=== PATIENT | female | born 1985 | race Caucasian/White ===

== ENCOUNTER → 2018-08-30 | Outpatient (CLI) | payer OTHER ==
--- NOTE | 2018-08-30 19:52 | RADIOLOGY REPORT (SQ) ---
EXAM DESCRIPTION: CT ABD/PELVIS WITH IV ORAL COMPLETED DATE/TIME: 08/30/2018 7:08 pm REASON FOR STUDY: R10.13 EPIGASTRIC PAIN R10.13 EPIGASTRIC PAIN COMPARISON: None. TECHNIQUE: CT scan of the abdomen and pelvis performed using helical scanning technique with dynamic intravenous contrast injection. Oral contrast. Images reviewed with lung, soft tissue, and bone win dows. Reconstructed coronal and sagittal MPR images reviewed. Delayed images for evaluation of the ur inary system also acquired. All images stored on PACS. All CT scanners at this facility use dose modulation, iterative reconstruction, and/or weight based d osing when appropriate to reduce radiation dose to as low as reasonably achievable (ALARA). [facility]: Dose Right [facility]: CareDose [facility]: Dose Right [facility]: Teradose 4D [facility]: amaysim CONTRAST TYPE AND DOSE: contrast/concentration: Isovue 350.00 mg/ml; Total Contrast Delivered: 98.0 ml; Total Saline Delivered: 72.0 ml RENAL FUNCTION: Creatinine 0.5 RADIATION DOSE: CT Rad equipment meets quality standard of care and radiation dose reduction techniq ues were employed. CTDIvol: 12.3 - 16.7 mGy. DLP: 1664 mGy-cm.. LIMITATIONS: None. FINDINGS: LOWER CHEST: No significant findings. No nodules or infiltrates. LIVER: Normal size. No masses. No dilated ducts. SPLEEN: Normal size. No focal lesions. PANCREAS: No masses. No significant calcifications. No adjacent inflammation or peripancreatic fluid collections. Pancreatic duct not dilated. GALLBLADDER: No identified stones by CT criteria. No inflammatory changes to suggest cholecystitis. ADRENAL GLANDS: No significant masses or asymmetry. RIGHT KIDNEY AND URETER: No solid masses. No significant calcifications. No hydronephrosis or hyd roureter. LEFT KIDNEY AND URETER: No solid masses. No significant calcifications. No hydronephrosis or hydr oureter. AORTA AND VESSELS: No aneurysm. No dissection. Renal arteries, SMA, celiac without stenosis. RETROPERITONEUM: No retroperitoneal adenopathy, hemorrhage or masses. BOWEL AND PERITONEAL CAVITY: No masses or inflammatory changes. No free fluid or peritoneal masses. APPENDIX: Not identified. PELVIS: No mass. No free fluid. Normal bladder. ABDOMINAL WALL: No masses. No hernias. BONES: No significant or acute findings. OTHER: No other significant finding. IMPRESSION: NO SIGNIFICANT OR ACUTE FINDING IN THE ABDOMEN OR PELVIS ON CT SCAN WITH IV CONTRAST. TECHNICAL DOCUMENTATION: JOB ID: [id number] Quality ID # [id number]: Final reports with documentation of one or more dose reduction techniques (e.g., Au tomated exposure control, adjustment of the mA and/or kV according to patient size, use of iterative reconstruction technique) 2010 [employer]- All Rights Reserved Reading location - IP/workstation name: [email or web address]
== END ==
LOC: RAD 16:01
PROVIDERS: ATTEND Physician Assistant
DX: R10.13 Epigastric pain (principal)
CPT/HCPCS: 74177; 82565

== ENCOUNTER 2018-08-31 13:42 | Emergency (ER) | payer OTHER ==
--- NOTE | 2018-08-31 14:08 | ER Document Report ---
ED Medical Screen (RME) - General Chief Complaint: Abdominal Pain Stated Complaint: STOMACH PAIN Time Seen by Provider: 08/31/18 14:02 Primary Care Provider: AVA BRAVO PA [Primary Care Provider] - Follow up as needed Notes: 32-year-old type II diabetic with hyperlipidemia on Crestor and fenofibrate and Janumet complains of 12-day history of upper abdominal pain going into both sides of her back. She has had a decrease in appetite. She reports the pain is worse following eating, and the pain gets worse within minutes of eating. She did have a contrasted CT scan of the abdomen and pelvis yesterday that was unremarkable. By history she has not had a gallbladder ultrasound. She does not know what lab work has been done by her primary care provider. I have greeted and performed a rapid initial assessment of this patient. A comprehensive ED assessment and evaluation of the patient, analysis of test results and completion of the medical decision making process will be conducted by additional ED providers. TRAVEL OUTSIDE OF THE [place] IN LAST 30 DAYS: No - Related Data Allergies/Adverse Reactions: No Known Allergies Allergy (Unverified 08/31/18 13:46) Past Medical History - Social History Chew tobacco use (# tins/day): No Frequency of alcohol use: None Drug Abuse: None Endocrine Medical History: Reports: Hx Diabetes Mellitus Type 2 Renal/ Medical History: Denies: Hx Peritoneal Dialysis Past Surgical History: Reports: Hx Section - x2 Physical Exam - Vital signs Vitals: Temp Pulse Resp BP Pulse Ox 98.9 F 91 18 128/87 H 98 08/31/18 13:52 08/31/18 13:52 08/31/18 13:52 08/31/18 13:52 08/31/18 13:52 Course - Vital Signs Vital signs: Temp Pulse Resp BP Pulse Ox 98.9 F 91 18 128/87 H 98 08/31/18 13:52 08/31/18 13:52 08/31/18 13:52 08/31/18 13:52 08/31/18 13:52 Doctor's Discharge - Discharge Referrals: AVA BRAVO PA [Primary Care Provider] - Follow up as needed
[2018-08-31 14:42] LABS: ABSOLUTE EOSINOPHILS # (AUTO) 0.1 10^3/uL (0.0-0.6); ABSOLUTE MONOCYTES (AUTO) 0.5 10^3/uL (0.1-1.4); ABSOLUTE NEUT (AUTO) 4.8 10^3/uL (1.7-8.2); BASOPHILS % (AUTO) 0.4 % (0-2); EOSINOPHILS % (AUTO) 1.2 % (0-6); HEMATOCRIT 39.8 % (36.0-47.0); LYMPHOCYTES % (AUTO) 35.4 % (13-45); MEAN CORPUSCULAR HEMOGLOBIN 29.6 pg (27.0-33.4); MEAN CORPUSCULAR HGB CONC 35.2 g/dL (32.0-36.0); MEAN CORPUSCULAR VOLUME 84 fl (80-97); MONOCYTES % (AUTO) 6.1 % (3-13); PLATELET COUNT 243 10^3/uL (150-450); RED BLOOD COUNT 4.73 10^6/uL (3.72-5.28); RED CELL DISTRIBUTION WIDTH 12.9 % (11.5-14.0); SEGMENTED NEUTROPHILS % (AUTO) 56.9 % (42-78); TOTAL CELLS COUNTED % (AUTO) 100 %; WHITE BLOOD COUNT 8.4 10^3/uL (4.0-10.5)
[2018-08-31] MEDS ORDERED: LIDOCAINE 2% VISCOUS SOLN 20 ML UDCUP PO ONE (14:57)
[2018-08-31] MEDS ORDERED: MAG HYDROX/AL HYDROX/SIMETH SUSP 30 ML UDCUP PO ONE (14:57)
[2018-08-31] MEDS ORDERED: METOCLOPRAMIDE HCL ORAL SOLN 10 MG/10 ML UDCUP PO ONE (14:57)
[2018-08-31 15:00] LABS: ALANINE AMINOTRANSFERASE 39 U/L (9-52); ALBUMIN 4.7 g/dL (3.5-5.0); ALKALINE PHOSPHATASE 62 U/L (38-126); ANION GAP 14 (5-19); ASPARTATE AMINO TRANSFERASE 32 U/L (14-36); BILIRUBIN,DIRECT 0.3 mg/dL (0.0-0.4); BILIRUBIN,TOTAL 0.9 mg/dL (0.2-1.3); BLOOD UREA NITROGEN 11 mg/dL (7-20); CALCIUM 10.3 mg/dL (8.4-10.2); CARBON DIOXIDE 24 mmol/L (22-30); CHLORIDE 100 mmol/L (98-107); GLUCOSE 133 mg/dL (75-110); LIPASE 91.1 U/L (23-300); POTASSIUM 3.9 mmol/L (3.6-5.0); SODIUM 138.4 mmol/L (137-145)
[2018-08-31 15:06] LABS: APPEARANCE,URINE SLIGHTLY-CLOUDY; BILIRUBIN,URINE NEGATIVE (NEGATIVE); COLOR,URINE YELLOW; GLUCOSE, URINE NEGATIVE (NEGATIVE); KETONES,URINE NEGATIVE (NEGATIVE); LEUKOCYTE ESTERASE,URINE LARGE (NEGATIVE); NITRITE,URINE NEGATIVE (NEGATIVE); PROTEIN,URINE NEGATIVE (NEGATIVE); UROBILINOGEN,URINE NEGATIVE mg/dL (<2.0)
--- NOTE | 2018-08-31 15:15 | ER Document Report ---
ED General - General Chief Complaint: Abdominal Pain Stated Complaint: STOMACH PAIN Time Seen by Provider: 08/31/18 14:02 Primary Care Provider: AVA BRAVO PA [Primary Care Provider] - Follow up in 3-5 days TRAVEL OUTSIDE OF THE [place] IN LAST 30 DAYS: No - HPI Notes: Patient is a 32-year-old female that presents to the emergency department for chief complaint of abdominal pain. Patient reports epigastric abdominal pain for the last 12 days. She states it wraps around both sides into her back. She states immediately after eating her pain gets more severe. She describes it as sharp and constant with exacerbations while eating. She denies any associated vomiting but reports intermittent nausea. She denies any diarrhea or constipation. Patient has never had symptoms similar to this in the past. She does still have her gallbladder. Patient states she saw her primary care provider who ordered outpatient CT scan of the abdomen and pelvis with IV and oral contrast, she had the study done yesterday and states she was told the results were normal. Past Medical History: Diabetes, hyperlipidemia Past Surgical History: x2 Social History: Denies drugs alcohol and tobacco Family History: Reviewed and noncontributory for presenting illness Allergies: Reviewed, see documented allergy list. REVIEW OF SYSTEMS: CONSTITUTIONAL : No fever No chills No diaphoresis No recent illness EENT: No vision changes No congestion No sore throat CARDIOVASCULAR: No chest pain No palpitations RESPIRATORY: No shortness of breath No cough No difficulty breathing GASTROINTESTINAL: abdominal pain nausea No vomiting No diarrhea GENITOURINARY: No dysuria No hematuria No difficulty urinating MUSCULOSKELETAL: No back pain No leg pain No arm pain SKIN: No rashes No lesions LYMPHATIC: No swollen, enlarged glands. NEUROLOGICAL: No lightheadedness No headache No weakness No paresthesias PSYCHIATRIC: No anxiety No depression PHYSICAL EXAMINATION: Vital signs reviewed, nursing noted reviewed. GENERAL: Well-appearing, well-nourished and in no acute distress. HEAD: Atraumatic, normocephalic. EYES: Eyes appear normal, extraocular movements intact, sclera anicteric, conjunctiva are normal. ENT: nares patent, oropharynx clear without exudates. Moist mucous membranes. NECK: Normal range of motion, supple without lymphadenopathy LUNGS: Breath sounds clear to auscultation bilaterally and equal. No wheezes r ales or rhonchi. HEART: Regular rate and rhythm without murmurs ABDOMEN: Soft, epigastric tenderness, negative Lucas sign, normoactive bowel sounds. No rebound, guarding, or rigidity. No masses appreciated. EXTREMITIES: Nontender, good range of motion, no pitting or edema. NEUROLOGICAL: No focal neurological deficits. Moves all extremities spontaneously Motor and sensory grossly intact on exam. PSYCH: Normal mood, normal affect. SKIN: Warm, Dry, normal turgor, no rashes or lesions noted on exposed skin - Related Data Allergies/Adverse Reactions: No Known Allergies Allergy (Unverified 08/31/18 13:46) Past Medical History - Social History Smoking Status: Never Smoker Chew tobacco use (# tins/day): No Frequency of alcohol use: None Drug Abuse: None Family History: Reviewed & Not Pertinent Patient has suicidal ideation: No Patient has homicidal ideation: No Endocrine Medical History: Reports: Hx Diabetes Mellitus Type 2 Renal/ Medical History: Denies: Hx Peritoneal Dialysis Past Surgical History: Reports: Hx Section - x2 Physical Exam - Vital signs Vitals: Temp Pulse Resp BP Pulse Ox 98.9 F 91 18 128/87 H 98 08/31/18 13:52 08/31/18 13:52 08/31/18 13:52 08/31/18 13:52 08/31/18 13:52 Course - Re-evaluation Re-evalutation: 08/31/18 15:14 Vitals reviewed. Nursing notes reviewed. Patient given GI cocktail for symptomatic management. 08/31/18 18:35 Patient reevaluated and did have some dramatic relief after GI cocktail. She still reports epigastric discomfort. Her blood work is unremarkable. Patient's urine is suggestive of acute UTI. She states she does get them frequently. She will be started on Macrobid for her acute urinary tract infection. Patient is now telling me that she takes ibuprofen almost every day for frequent headaches. This may be the cause of her gastritis and epigastric discomfort. Patient was counseled on stopping all NSAID use and will be started on omeprazole for likely gastritis. Patient has a right upper quadrant ultrasound which is currently pending, plan to discharge home if ultrasound is normal with follow-up at GI. Laboratory 08/31/18 08/31/18 08/31/18 14:21 14:21 14:21 WBC 8.4 RBC 4.73 Hgb 14.0 Hct 39.8 MCV 84 MCH 29.6 MCHC 35.2 RDW 12.9 Plt Count 243 Seg Neutrophils % 56.9 Lymphocytes % 35.4 Monocytes % 6.1 Eosinophils % 1.2 Basophils % 0.4 Absolute Neutrophils 4.8 Absolute Lymphocytes 3.0 Absolute Monocytes 0.5 Absolute Eosinophils 0.1 Absolute Basophils 0.0 Sodium 138.4 Potassium 3.9 Chloride 100 Carbon Dioxide 24 Anion Gap 14 BUN 11 Creatinine 0.59 Est GFR ( Amer) > 60 Est GFR (Non-Af Amer) > 60 Glucose 133 H Calcium 10.3 H Total Bilirubin 0.9 Direct Bilirubin 0.3 Neonat Total Bilirubin Not Reportable Neonat Direct Bilirubin Not Reportable Neonat Indirect Bili Not Reportable AST 32 ALT 39 Alkaline Phosphatase 62 Total Protein 8.0 Albumin 4.7 Lipase 91.1 Urine Color YELLOW Urine Appearance SLIGHTLY-CLOUDY Urine pH 6.0 Ur Specific [place] 1.010 Urine Protein NEGATIVE Urine Glucose (UA) NEGATIVE Urine Ketones NEGATIVE Urine Blood SMALL H Urine Nitrite NEGATIVE Urine Bilirubin NEGATIVE Urine Urobilinogen NEGATIVE Ur Leukocyte Esterase LARGE H Urine WBC (Auto) 8 Urine RBC (Auto) 0 Squamous Epi Cells Auto 2 Urine Mucus (Auto) RARE Urine Ascorbic Acid NEGATIVE - Vital Signs Vital signs: Temp Pulse Resp BP Pulse Ox 98.9 F 91 18 128/87 H 98 08/31/18 13:52 08/31/18 13:52 08/31/18 13:52 08/31/18 13:52 08/31/18 13:52 - Laboratory Result Diagrams: 08/31/18 14:21 08/31/18 14:21 Laboratory results interpreted by me: 08/31/18 08/31/18 14:21 14:21 Glucose 133 H Calcium 10.3 H Urine Blood SMALL H Ur Leukocyte Esterase LARGE H Discharge - Discharge Clinical Impression: Acute UTI Abdominal pain Qualifiers: Abdominal location: epigastric Qualified Code(s): R10.13 - Epigastric pain Condition: Stable Disposition: HOME, SELF-CARE Instructions: Gastritis ([facility]), Nitrofurantoin ([facility]), Urinary Tract Infection ([facility]) Additional Instructions: Please return to the emergency department if you have any worsening, or concern of your symptoms. Please return to the emergency department if you develop chest pain, difficulty breathing, severe abdominal pain, or ongoing vomiting. Please follow-up with your primary care physician in 2-3 days and any other recommended physicians. If prescribed, take all medications as directed. If you have any questions or concerns do not hesitate to return the emergency department for evaluation. Avoid using NSAIDs for your headaches because these cause irritation to the stomach lining. NSAIDs include ibuprofen, Aleve, naproxen and Advil. It is okay to take Tylenol for your headache. Avoid foods that may irritate your stomach lining including caffeine, citrus, spicy foods, fried foods call and coffee Prescriptions: Nitrofurantoin Macrocrystal [Macrodantin] 100 mg PO Q6 5 Days capsule Omeprazole 40 mg PO DAILY #30 capsule.dr Referrals: AVA BRAVO PA [Primary Care Provider] - Follow up in 3-5 days ISAAK PAULSON MD [ACTIVE STAFF] - Follow up as needed
[2018-08-31] MEDS ORDERED: ACETAMINOPHEN 325 MG TABLET PO ONE (18:23)
[2018-08-31] MEDS ORDERED: NITROFURANTOIN MONOHYD/M-CRYST 100 MG CAPSULE PO ONE (18:23)
--- NOTE | 2018-08-31 19:16 | RADIOLOGY REPORT (SQ) ---
EXAM DESCRIPTION: U/S ABDOMEN LIMITED W/O DOP COMPLETED DATE/TIME: 08/31/2018 6:57 pm REASON FOR STUDY: Epigastric pain times 12 days, worse after eating COMPARISON: None. TECHNIQUE: Dynamic and static grayscale images acquired of the abdomen and recorded on PACS. Nicoleo radha selected color Doppler and spectral images recorded. LIMITATIONS: None. FINDINGS: PANCREAS: No masses. Visualized pancreatic duct normal caliber. LIVER: No masses. Echotexture normal. LIVER VASCULATURE: Normal directional flow of the main portal vein and hepatic veins. GALLBLADDER: No stones. Normal wall thickness. No pericholecystic fluid. ULTRASOUND-DETECTED BROOKS'S SIGN: Negative. INTRAHEPATIC DUCTS AND COMMON DUCT: CBD and intrahepatic ducts normal caliber. No filling defects. INFERIOR VENA CAVA: Not imaged. AORTA: No aneurysm. RIGHT KIDNEY: Normal size, 11.1 cm. Normal echogenicity. No solid or suspicious masses. No hydroneph rosis. No calcifications. PERITONEAL AND RIGHT PLEURAL SPACE: No ascites or effusions. OTHER: No other significant findings. IMPRESSION: NORMAL RIGHT UPPER QUADRANT ULTRASOUND. TECHNICAL DOCUMENTATION: JOB ID: [id number] [employer]- All Rights Reserved Reading location - IP/workstation name: [email or web address]
--- NOTE | 2018-08-31 19:32 | ER Document Report ---
Doctor's Note Notes: 08/31/18 19:31 Reviewed the ultrasound report with the patient. She is hemodynamically stable and does not look in much discomfort. She did get relief from the GI cocktail. I have given her a copy of the ultrasound report is well as the labs and have advised her to follow-up with Dr. Smith as recommended by Dr. Sow. Patient recently had a CT and is holding off on her metformin for 2 days. She will follow-up with her PCP (Hai Alvarez).
[2018-08-31 20:02] VITALS: BP 105/69
== END 2018-08-31 20:09 | disposition home or self-care (01) ==
LOC: ER 13:42
DX: N39.0 Urinary tract infection, site not specified (principal); R10.13 Epigastric pain; R11.0 Nausea; E11.9 Type 2 diabetes mellitus without complications
CPT/HCPCS: 99284; 36415; 83690; 85025; 80053; 81001; 76705; J3490; J8499

== ENCOUNTER 2019-02-22 22:13 | Inpatient (IN) | payer OTHER ==
[2019-02-23 00:03] LABS: APPEARANCE,URINE CLEAR; BILIRUBIN,URINE NEGATIVE (NEGATIVE); COLOR,URINE YELLOW; GLUCOSE, URINE >=500 mg/dL (NEGATIVE); KETONES,URINE 80 mg/dL (NEGATIVE); LEUKOCYTE ESTERASE,URINE NEGATIVE (NEGATIVE); NITRITE,URINE NEGATIVE (NEGATIVE); PROTEIN,URINE 30 mg/dL (NEGATIVE); URINE SPECIFIC GRAVITY 1.043; UROBILINOGEN,URINE NEGATIVE mg/dL (<2.0)
[2019-02-23 01:06] LABS: HEMATOCRIT 41.6 % (36.0-47.0); HEMOGLOBIN 14.6 g/dL (12.0-15.5); MEAN CORPUSCULAR HEMOGLOBIN 30.7 pg (27.0-33.4); MEAN CORPUSCULAR VOLUME 88 fl (80-97); PLATELET COUNT 257 10^3/uL (150-450); RED BLOOD COUNT 4.75 10^6/uL (3.72-5.28); RED CELL DISTRIBUTION WIDTH 13.3 % (11.5-14.0)
[2019-02-23 01:22] LABS: ALBUMIN 4.2 g/dL (3.5-5.0); ALKALINE PHOSPHATASE 85 U/L (38-126); ASPARTATE AMINO TRANSFERASE 26 U/L (14-36); BILIRUBIN,DIRECT 0.4 mg/dL (0.0-0.4); BILIRUBIN,TOTAL 1.1 mg/dL (0.2-1.3); BLOOD UREA NITROGEN 9 mg/dL (7-20); CALCIUM 9.2 mg/dL (8.4-10.2); GLUCOSE 263 mg/dL (75-110); POTASSIUM 4.3 mmol/L (3.6-5.0); TOTAL PROTEIN 7.7 g/dL (6.3-8.2)
[2019-02-23 01:27] LABS: ABSOLUTE LYMPHOCYTES# (MANUAL) 1.4 10^3/uL (0.5-4.7); ABSOLUTE MONOCYTES # (MANUAL) 1.8 10^3/uL (0.1-1.4); BASOPHILS % (MANUAL) 0 % (0-2); EOSINOPHILS % (MANUAL) 0 % (0-6); LYMPHOCYTES % (MANUAL) 9 % (13-45); MONOCYTES % (MANUAL) 11 % (3-13); SEGMENTED NEUTROPHILS % (MAN) 80 % (42-78); TOTAL CELLS COUNTED 100
[2019-02-23 01:28] LABS: CARBON DIOXIDE 15 mmol/L (22-30); CHLORIDE 100 mmol/L (98-107); PLATELET COMMENT ADEQUATE; RBC MORPHOLOGY COMMENT NORMO-CYTIC/CHROMIC; TOXIC GRANULATION SLIGHT; TOXIC VACUOLATION PRESENT
[2019-02-23] MEDS ORDERED: NORMAL SALINE 1000 ML 1,000 ML IV ONE ×2 (01:41→03:44)
[2019-02-23] MEDS ORDERED: ONDANSETRON HCL INJ/PF 4 MG/2 ML SDV IV ONE ×2 (01:41→02:03)
--- NOTE | 2019-02-23 01:43 | ER Document Report ---
HPI - HPI Patient complains to provider of: abdominal pain Time Seen by Provider: 02/23/19 01:38 Onset/Duration: Sudden, Persistent, Waxing and waning Quality of pain: Sharp, Stabbing Severity: Severe Pain Level: 5 Context: 33 yr old female patient, with the listed pmh, here for epigastric abdominal pain x a few days. she has also had several episodes of nonbloody nonbilious vomiting and nonbloody diarrhea. states can't hold anything down. no hx of this before. No abdominal surgeries other than a remote . She denies drinking alcohol. Denies history of gallstones or gallbladder disease. She denies any changes in medication or diet. She does take Crestor, Janumet, TriCor, and lisinopril. No history of ovarian cysts, fibroids, endometriosis, or renal stones. No UTI symptoms. No URI symptoms. No recent antibiotics or steroids. No history of asthma. hx of diabetes and states her sugars are well controlled. she is only on po meds. No vaginal discharge/complaints/lesions or concerns for STDs and does not want a pelvic exam. No ripping or tearing sensation. Hasn't taken anything for her symptoms. No excessive NSAID use, Tylenol use, or EtOH. No prior history of pancreatitis, ulcers, GI bleed, GERD, IBS, Crohn's, or UC. no blood thinners. no fall or trauma. no other associated sx. denies prior hx of dka. Associated Symptoms: Diarrhea, Vomiting Exacerbated by: Food Relieved by: Remaining still Similar symptoms previously: Yes Recently seen / treated by doctor: No - ROS Systems Reviewed and Negative: Yes All other systems reviewed and negative - To include 10 systems, unless mentioned in the HPI - REPRODUCTIVE Reproductive: DENIES: : Past Medical History - General Information source: Patient - Social History Smoking Status: Never Smoker Frequency of alcohol use: Rare Drug Abuse: None Lives with: Family Family History: Reviewed & Not Pertinent Patient has suicidal ideation: No Patient has homicidal ideation: No - Past Medical History Cardiac Medical History: Reports: Hx Hypercholesterolemia, Hx Hypertension Endocrine Medical History: Reports: Hx Diabetes Mellitus Type 2. Denies: Hx Hypothyroidism Renal/ Medical History: Denies: Hx Peritoneal Dialysis Past Surgical History: Reports: Hx Section - x2 - Immunizations Immunizations up to date: Yes Vertical Provider Document - CONSTITUTIONAL Agree With Documented VS: Yes Exam Limitations: No Limitations General Appearance: WD/WN Notes: >>>> PHYSICAL_EXAM: GENERAL_APPEARANCE: well_nourished, alert, cooperative, no_acute_distress, mild_obvious_discomfort. Pleasant, obese young female, smiling, speaking in full sentences, in no sign of resp distress, easily sitting up, appears uncomfortable but not toxic, VITALS: reviewed, see vital signs table. HEAD: normocephalic, atraumatic. no jones signs. no raccoon eyes. EYES: PERRL, EOMI, (-)scleral icterus. NOSE: no_nasal_discharge. MOUTH: (-)decreased moisture. THROAT: no_tonsilar_inflammation/hypertrophy/exudate NECK: supple, no_neck_tenderness, full rom. full strength. no meningeal signs. BACK: no midline_back_tenderness. no step offs or deformities CHEST_WALL: no_chest_tenderness. LUNGS: no_wheezing, (-)accessory muscle use, good air exchange bilateral. HEART: normal_rate, normal_rhythm, ABDOMEN: normal_BS, soft, abdomen-diffuse, obese abd, exam somewhat limited secondary to pts body habitus, mod ttp in the epigastrium, (-)guarding, (- )rebound, no distension or peritoneal signs. neg murphys. neg mcburneys. no cva tenderness. neg heel strike. neg obturator. neg psoas. neg rovsign. PELVIC: deferred RECTAL: deferred EXTREMITIES: strength 5/5 in all_extremities, good pulses in all_extremities, no_edema, no_swelling\tenderness. full rom. normal gait. good hand drywall foreman. brisk cap refill. SKIN: warm, dry, good_color, no_rash. no grossly visible overlying skin changes to suggest trauma NEURO: motor_intact, sensory_intact. MENTAL_STATUS: normal_affect, speech_clear, oriented_X_3, responds_ appropriately to questions. - INFECTION CONTROL TRAVEL OUTSIDE OF THE [place] IN LAST 30 DAYS: No Course - Re-evaluation Re-evalutation: 02/23/19 06:20 Pt here for epigastric abdominal pain, some vomiting and diarrhea x the last few days. She is a diabetic. She states she is not able to keep anything down. She did come in tachycardic. denies cp or sob. EKG showed sinus tach but was otherwise unremarkable per Dr. Collins. Her labs were notable for a leukocytosis with left shift, lipase of 16,000, elevated triglycerides, and a mild ketonuria and glycosuria. Serial abdominal exams remain benign and nonsurgical. Ct abd/pelv with iv contrast showed moderate inflammation surrounding the pancreas however no necrosis, pseudocyst, or any other acute finding per radiology and reviewed by myself. Despite several rounds of pain and nausea medicine and 2 L of fluid it was very hard to control patient's pain and she did not pass a p.o. challenge. Secondary to this I did consult hospitalist, Dr. Gallo, who graciously agreed to accept the patient for further work-up and treatment. Care transferred to hospitalist in stable condition. Please refer to his note for further details of the visit. On reexam, pt improved minimally with tx listed. remained stable. nontoxic. serial abd exams remain benign case discussed with ER Attending, Dr. collins who directed and agrees with plan o f care Documentation achieved through voice recording which may lead to some occasional accidental typographical errors. Extensive efforts have been made to proof read documentation to make sure these are the least as possible. Category Date Time Status Accucheck (ED) NOW Care 02/23/19 01:47 Active EKG Documentation STAT Care 02/23/19 01:42 Completed EKG Documentation STAT Care 02/23/19 01:42 Completed PCT AccuChek Documentation NOW Care 02/23/19 01:47 Active Saline Lock (ED) NOW Care 02/22/19 22:[address] ABD/PELVIS WITH IV ONLY [CT] Stat Exams 02/23/19 02:03 Ordered BETA HYDROXYBUTYRATE Stat Lab 02/23/19 00:15 Received CBC WITH DIFF [HEME] Stat Lab 02/22/19 22:53 Completed COMPREHENSIVE METABOLIC PANEL [CHEM] Stat Lab 02/22/19 22:53 Completed HCG QUALITATIVE, URINE [URIN] Stat Lab 02/22/19 23:15 Completed LACTIC ACID SEPSIS [CHEM] Stat Lab 02/23/19 02:32 Completed LIPASE [CHEM] Stat Lab 02/22/19 22:53 Completed LIPID PANEL [CHEM] Stat Lab 02/23/19 00:15 Completed MANUAL DIFFERENTIAL [HEME] Stat Lab 02/23/19 00:15 Completed URINALYSIS [URIN] Stat Lab 02/22/19 23:15 Completed URINE CULTURE [MC] Stat Lab 02/23/19 01:55 Received Morphine Sulfate [Morphine 10 mg/ml Inj] Med 02/23/19 02:02 Discontinued 4 mg IV NOW ONE Morphine Sulfate [Morphine 10 mg/ml Inj] Med 02/23/19 03:45 Once 4 mg IV NOW ONE Normal Saline 1000 ml [NaCl 0.9% 1000 ml IV Soln] 1,000 Med 02/23/19 01:41 Discontinued ml IV BOLUS Normal Saline 1000 ml [NaCl 0.9% 1000 ml IV Soln] 1,000 Med 02/23/19 03:44 Ordered ml IV BOLUS Ondansetron HCl/Pf [Zofran Inj/Pf 4 mg/2 ml Sdv] Med 02/23/19 01:41 Discontinued 4 mg IV NOW ONE Ondansetron HCl/Pf [Zofran Inj/Pf 4 mg/2 ml Sdv] Med 02/23/19 02:03 Discontinued 4 mg IV NOW ONE EKG ER ONLY [ER] Stat Oth 02/23/19 Active 02/23/19 06:49 02/23/19 07:59 02/23/19 08:00 - Vital Signs Vital signs: Temp Pulse Resp BP Pulse Ox 98.1 F 123 H 18 126/82 H 97 02/22/19 22:17 02/22/19 22:17 02/22/19 22:17 02/22/19 22:17 02/22/19 22:17 02/23/19 06:30 Temp Pulse Pulse Resp BP BP Pulse Ox 02/23/19 03:29 98.9 F 118 H 18 125/78 100 02/22/19 22:17 98.1 F 123 H 18 126/82 H 97 - Laboratory Result Diagrams: 02/23/19 00:15 02/23/19 00:15 Laboratory results interpreted by me: 02/22/19 02/23/19 23:15 00:15 WBC 16.0 H Seg Neuts % (Manual) 80 H Lymphocytes % (Manual) 9 L Abs Neuts (Manual) 12.8 H Abs Monocytes (Manual) 1.8 H Urine Protein 30 H Urine Glucose (UA) >=500 H Urine Ketones 80 H Urine Blood SMALL H 09/12/19 06:24 Labs- Entire Visit 02/22/19 02/23/19 02/23/19 23:15 00:15 00:15 WBC 16.0 H RBC 4.75 Hgb 14.6 Hct 41.6 MCV 88 MCH 30.7 MCHC 35.0 RDW 13.3 Plt Count 257 Lymph % (Auto) Not Reportable [place] % (Auto) Not Reportable Eos % (Auto) Not Reportable Baso % (Auto) Not Reportable Absolute Neuts (auto) Not Reportable Absolute Lymphs (auto) Not Reportable Absolute Monos (auto) Not Reportable Absolute Eos (auto) Not Reportable Absolute Basos (auto) Not Reportable Total Counted 100 Seg Neutrophils % Not Reportable Seg Neuts % (Manual) 80 H Lymphocytes % (Manual) 9 L Monocytes % (Manual) 11 Eosinophils % (Manual) 0 Basophils % (Manual) 0 Abs Neuts (Manual) 12.8 H Abs Lymphs (Manual) 1.4 Abs Monocytes (Manual) 1.8 H Absolute Eos (Manual) 0.0 Abs Basophils (Manual) 0.0 Toxic Granulation SLIGHT Toxic Vacuolation PRESENT Platelet Comment ADEQUATE RBC Morph Comment NORMO-CYTIC/CHROMIC Sodium 137.1 Potassium 4.3 Chloride 100 Carbon Dioxide 15 L Anion Gap 22 H BUN 9 Creatinine 0.53 Est GFR ( Amer) > 60 Est GFR (MDRD) Non-Af > 60 Glucose 263 H Lactic Acid Calcium 9.2 Total Bilirubin 1.1 Direct Bilirubin 0.4 Neonat Total Bilirubin Not Reportable Neonat Direct Bilirubin Not Reportable Neonat Indirect Bili Not Reportable AST 26 ALT 18 Alkaline Phosphatase 85 Total Protein 7.7 Albumin 4.2 Triglycerides Cholesterol LDL Cholesterol Direct VLDL Cholesterol, Calc HDL Cholesterol Lipase 99298.0 H Urine Color YELLOW Urine Appearance CLEAR Urine pH 5.0 Ur Specific [place] 1.043 Urine Protein 30 H Urine Glucose (UA) >=500 H Urine Ketones 80 H Urine Blood SMALL H Urine Nitrite NEGATIVE Urine Bilirubin NEGATIVE Urine Urobilinogen NEGATIVE Ur Leukocyte Esterase NEGATIVE Urine WBC (Auto) 1 Urine RBC (Auto) 1 Squamous Epi Cells Auto <1 Urine Mucus (Auto) RARE Urine Ascorbic Acid NEGATIVE Urine HCG, Qual NEGATIVE 02/23/19 02/23/19 00:15 02:32 WBC RBC Hgb Hct MCV MCH MCHC RDW Plt Count Lymph % (Auto) [place] % (Auto) Eos % (Auto) Baso % (Auto) Absolute Neuts (auto) Absolute Lymphs (auto) Absolute Monos (auto) Absolute Eos (auto) Absolute Basos (auto) Total Counted Seg Neutrophils % Seg Neuts % (Manual) Lymphocytes % (Manual) Monocytes % (Manual) Eosinophils % (Manual) Basophils % (Manual) Abs Neuts (Manual) Abs Lymphs (Manual) Abs Monocytes (Manual) Absolute Eos (Manual) Abs Basophils (Manual) Toxic Granulation Toxic Vacuolation Platelet Comment RBC Morph Comment Sodium Potassium Chloride Carbon Dioxide Anion Gap BUN Creatinine Est GFR ( Amer) Est GFR (MDRD) Non-Af Glucose Lactic Acid 1.5 Calcium Total Bilirubin Direct Bilirubin Neonat Total Bilirubin Neonat Direct Bilirubin Neonat Indirect Bili AST ALT Alkaline Phosphatase Total Protein Albumin Triglycerides 3226 H Cholesterol 551.91 H LDL Cholesterol Direct 34 VLDL Cholesterol, Calc UNABLE TO CALCULATE HDL Cholesterol 45 Lipase Urine Color Urine Appearance Urine pH Ur Specific [place] Urine Protein Urine Glucose (UA) Urine Ketones Urine Blood Urine Nitrite Urine Bilirubin Urine Urobilinogen Ur Leukocyte Esterase Urine WBC (Auto) Urine RBC (Auto) Squamous Epi Cells Auto Urine Mucus (Auto) Urine Ascorbic Acid Urine HCG, Qual - Diagnostic Test Radiology reviewed: Image reviewed, Reports reviewed Radiology results interpreted by me: 02/23/19 06:30 Abdomen/Pelvis CT 02/23/19 02:03 IMPRESSION: Moderate inflammation around the pancreas, but no evidence of any other pa ncreatic process or pseudocyst formation. - EKG Interpretation by Nm EKG shows normal: Sinus rhythm Rate: Tachycardia - 124 bpm, no stemi, no old avail for comparison. Reviewed by Dr. Collins When compared to previous EKG there are: No significant change Discharge - Discharge Clinical Impression: Hypertriglyceridemia, Hyperglycemia Pancreatitis Qualifiers: Chronicity: acute Pancreatitis type: other Acute pancreatitis complication: no infection or necrosis Qualified Code(s): K85.80 - Other acute pancreatitis without necrosis or infection Leukocytosis Qualifiers: Leukocytosis type: unspecified Qualified Code(s): D72.829 - Elevated white blood cell count, unspecified Hyperlipidemia Qualifiers: Hyperlipidemia type: unspecified Qualified Code(s): E78.5 - Hyperlipidemia, unspecified Abdominal pain Qualifiers: Abdominal location: upper abdomen, unspecified Qualified Code(s): R10.10 - Upper abdominal pain, unspecified Vomiting Qualifiers: Vomiting type: unspecified Vomiting Intractability: unspecified Nausea presence: with nausea Qualified Code(s): R11.2 - Nausea with vomiting, unspecified Condition: Stable Disposition: ADMITTED INPATIENT Admitting Provider: Jonathan (Hospitalist) - called x 1 at 6:15am. no answer. no vmail to leave msg on. dr gallo then did call back at [phone] and agreed to accept the pt to their service for further workup. Unit Admitted: Telemetry
[2019-02-23 01:51] LABS: ANION GAP 22 (5-19)
[2019-02-23] MEDS ORDERED: MORPHINE SULFATE 10 MG/ML INJ IV ONE ×2 (02:02→03:45)
[2019-02-23 03:19] LABS: CHOLESTEROL 551.91 mg/dL (0-200); DIRECT LDL 34 mg/dL (<100); TRIGLYCERIDES 3226 mg/dL (<150)
--- NOTE | 2019-02-23 05:06 | RADIOLOGY REPORT (SQ) ---
CLINICAL HISTORY: lipase 16,089, epigastric pain, tachy, vom. HCG NEG, CREAT 0.53 COMPARISON: None. TECHNIQUE: CT ABDOMEN PELVIS WITH IV CONTRAST on 02/23/2019 2:03 AM CDT This exam was performed according to our departmental dose-optimization program, which includes automated exposure control, adjustment of the mA and/or kV according to patient size and/or use of iterative reconstruction technique. FINDINGS: Lower lungs are clear. Abdomen: The liver is normal in appearance. There is no biliary dilatation. Gallbladder is normal in appearance. There is moderate inflammation surrounding the pancreas. Spleen there are chronic calcifications right adrenal gland. Left adrenal glands and both kidneys are normal. Abdominal aorta is normal in course and caliber without aneurysm. There is no free air. There is no retroperitoneal adenopathy. Pelvis: There is no bowel obstruction. Urinary bladder is unremarkable. There is no free fluid. Uterus is normal in size. Appendix is normal. Skeleton: There are no acute osseous findings. No suspicious bony lesions. IMPRESSION: Moderate acute no evidence of pancreatic process or pseudocyst formation.
[2019-02-23] MEDS ORDERED: IPRATROPIUM/ALBUTEROL 0.5-2.5 MG/3 ML AMPUL NEB PRN (06:24)
[2019-02-23] MEDS ORDERED: MAG HYDROX/AL HYDROX/SIMETH SUSP 30 ML UDCUP PO PRN (06:24)
[2019-02-23] MEDS ORDERED: PROMETHAZINE HCL 25 MG SUPP.RECT PR PRN (06:24)
[2019-02-23] MEDS ORDERED: ONDANSETRON HCL INJ/PF 4 MG/2 ML SDV IV PRN (06:24)
[2019-02-23] MEDS ORDERED: NORMAL SALINE 1000 ML 1,000 ML IV SCH (06:30)
[2019-02-23] MEDS ORDERED: GLUCAGON,HUMAN RECOMB 1 MG INJ IM PRN (06:33)
[2019-02-23] MEDS ORDERED: DEXTROSE 40% GEL 15 GM TUBE PO PRN ×2 (06:33)
[2019-02-23] MEDS ORDERED: DEXTROSE 50%-WATER 25 GM/50 ML DISP.SYRIN IV PRN ×2 (06:33)
--- NOTE | 2019-02-23 07:00 | PDOC H&P ---
History of Present Illness Admission Date/PCP: 02/23/19 06:50 LAURA MERA Patient complains of: Abdominal pain History of Present Illness: RYNE BOBO is a 33 year old female with a past medical history of diabetes, hypertriglyceridemia and obesity. She presents with 48 hours of abdominal pain that radiates to the back with nausea without vomiting. Pain is exacerbated by movement or food prompting her to evaluate in the emergency department where she is found to have acute pancreatitis with a lipase of 16,[address] without necrosis. She started on symptomatic management IV fluids and referred to the hospitalist for admission. She denies previous episode she denies recent medication changes, alcohol and is otherwise been feeling well. Past Medical History Cardiac Medical History: Reports: Hyperlipidema, Hypertension Endocrine Medical History: Reports: Diabetes Mellitus Type 2 Denies: Hypothyroidism Past Surgical History Past Surgical History: Reports: Section - x2 Social History Information Source: Patient Lives with: Family Smoking Status: Never Smoker Frequency of Alcohol Use: None Drugs: None - Advance Directive Resuscitation Status: Full Code Family History Family History: DM, Hyperlipidemia, Hypertension Parental Family History Reviewed: Yes Children Family History Reviewed: Yes Sibling(s) Family History Reviewed.: Yes Medication/Allergy Home Medications: Nitrofurantoin Macrocrystal [Macrodantin] 100 mg PO Q6 5 Days capsule 08/31/18 Omeprazole 40 mg PO DAILY #30 capsule. 08/31/18 Allergies/Adverse Reactions: No Known Allergies Allergy (Unverified 08/31/18 13:46) Review of Systems Constitutional: PRESENT: as per HPI, anorexia. ABSENT: chills, fever(s), headache(s), weight gain, weight loss Eyes: ABSENT: visual disturbances Ears: ABSENT: hearing changes Cardiovascular: ABSENT: chest pain, dyspnea on exertion, edema, orthropnea, palpitations Respiratory: ABSENT: cough, hemoptysis Gastrointestinal: PRESENT: as per HPI, abdominal pain, nausea. ABSENT: cons tipation, diarrhea, hematemesis, hematochezia, vomiting Genitourinary: ABSENT: dysuria, hematuria Musculoskeletal: ABSENT: joint swelling Integumentary: ABSENT: rash, wounds Neurological: ABSENT: abnormal gait, abnormal speech, confusion, dizziness, focal weakness, syncope Psychiatric: ABSENT: anxiety, depression, homidical ideation, suicidal ideation Endocrine: ABSENT: cold intolerance, heat intolerance, polydipsia, polyuria Hematologic/Lymphatic: ABSENT: easy bleeding, easy bruising Physical Exam Vital Signs: Temp Pulse Resp BP Pulse Ox 98.9 F 118 H 18 125/78 100 02/23/19 03:29 02/23/19 03:29 02/23/19 03:29 02/23/19 03:29 02/23/19 03:29 Intake & Output 02/21/19 02/22/19 02/23/19 11:59 11:59 11:59 Intake Total 1000 Balance 1000 Weight 88.6 kg General appearance: PRESENT: cooperative, mild distress, obese Head exam: PRESENT: atraumatic, normocephalic Eye exam: PRESENT: conjunctiva pink, EOMI, PERRLA. ABSENT: scleral icterus Ear exam: PRESENT: normal external ear exam Mouth exam: PRESENT: moist, tongue midline Neck exam: ABSENT: carotid bruit, JVD, lymphadenopathy, thyromegaly Respiratory exam: PRESENT: clear to auscultation holli. ABSENT: rales, rhonchi, wheezes Cardiovascular exam: PRESENT: RRR. ABSENT: diastolic murmur, rubs, systolic murmur Pulses: PRESENT: normal dorsalis pedis pul Vascular exam: PRESENT: normal capillary refill GI/Abdominal exam: PRESENT: hyperactive bowel sounds, soft, tenderness. ABSENT: distended, guarding, mass, organolmegaly, rebound Rectal exam: PRESENT: deferred Extremities exam: PRESENT: full ROM. ABSENT: calf tenderness, clubbing, pedal edema Neurological exam: PRESENT: alert, awake, oriented to person, oriented to place, oriented to time, oriented to situation, CN II-XII grossly intact. ABSENT: mo tor sensory deficit Psychiatric exam: PRESENT: appropriate affect, normal mood. ABSENT: homicidal ideation, suicidal ideation Skin exam: PRESENT: dry, intact, warm. ABSENT: cyanosis, rash Results Laboratory Results: 02/23/19 00:15 02/23/19 00:15 02/22/19 02/23/19 02/23/19 23:15 00:15 00:15 WBC 16.0 H RBC 4.75 Hgb 14.6 Hct 41.6 MCV 88 MCH 30.7 MCHC 35.0 RDW 13.3 Plt Count 257 Seg Neutrophils % Not Reportable Sodium 137.1 Potassium 4.3 Chloride 100 Carbon Dioxide 15 L Anion Gap 22 H BUN 9 Creatinine 0.53 Est GFR ( Amer) > 60 Glucose 263 H Lactic Acid Calcium 9.2 Total Bilirubin 1.1 AST 26 Alkaline Phosphatase 85 Total Protein 7.7 Albumin 4.2 Triglycerides Cholesterol LDL Cholesterol Direct HDL Cholesterol Lipase 05750.0 H Urine Color YELLOW Urine Appearance CLEAR Urine pH 5.0 Ur Specific [place] 1.043 Urine Protein 30 H Urine Glucose (UA) >=500 H Urine Ketones 80 H Urine Blood SMALL H Urine Nitrite NEGATIVE Ur Leukocyte Esterase NEGATIVE Urine WBC (Auto) 1 Urine RBC (Auto) 1 02/23/19 02/23/19 00:15 02:32 WBC RBC Hgb Hct MCV MCH MCHC RDW Plt Count Seg Neutrophils % Sodium Potassium Chloride Carbon Dioxide Anion Gap BUN Creatinine Est GFR ( Amer) Glucose Lactic Acid 1.5 Calcium Total Bilirubin AST Alkaline Phosphatase Total Protein Albumin Triglycerides 3226 H Cholesterol 551.91 H LDL Cholesterol Direct 34 HDL Cholesterol 45 Lipase Urine Color Urine Appearance Urine pH Ur Specific [place] Urine Protein Urine Glucose (UA) Urine Ketones Urine Blood Urine Nitrite Ur Leukocyte Esterase Urine WBC (Auto) Urine RBC (Auto) Impressions: Abdomen/Pelvis CT 02/23/19 02:03 IMPRESSION: Moderate acute no evidence of pancreatic process or pseudocyst formation. Assessment and Plan - Diagnosis (1) Pancreatitis Qualifiers: Chronicity: acute Pancreatitis type: other Acute pancreatitis complication: no infection or necrosis Qualified Code(s): K85.80 - Other acute pancreatitis without necrosis or infection Is this a current diagnosis for this admission?: Yes Plan: Risk factors include hypertriglyceridemia, diabetes and NuvaRing. Medical admission, symptomatic management, IV fluid challenge, follow-up chemistry. Consider transfer to tertiary care for exchange transfusion if not significantly improved 48 hours. (2) Abdominal pain Qualifiers: Abdominal location: upper abdomen, unspecified Qualified Code(s): R10.10 - Upper abdominal pain, unspecified Is this a current diagnosis for this admission?: Yes Plan: Secondary to #1, Toradol with Tylenol Dilaudid for breakthrough pain (3) Hypertriglyceridemia Is this a current diagnosis for this admission?: Yes Plan: Familial, on statin and TriCor (4) Diabetes Is this a current diagnosis for this admission?: Yes Plan: Humalog insulin every 6 hours while n.p.o. Follow-up A1c - Time Time Spent with patient: 25-34 minutes - Inpatient Certification Medical Necessity: Need Close Monitoring Due to Risk of Patient Decompensation
[2019-02-23] MEDS: KETOROLAC TROMETHAMINE INJ/PF 30 MG/1 ML SDV IV PRN ×3 (07:41→21:22)
[2019-02-23] MEDS: INSULIN LISPRO 100 UNIT/ML 3 ML VIAL SUBCUT SCH ×3 (07:42→17:13)
--- NOTE | 2019-02-23 09:34 | EKG REPORT ---
SEVERITY:- OTHERWISE NORMAL ECG - SINUS TACHYCARDIA : Confirmed by: Geri Massey MD 23-Feb-2019 09:33:40
[2019-02-23] MEDS: DOCUSATE SODIUM 100 MG CAPSULE PO SCH ×2 (09:40→17:13)
[2019-02-23] MEDS: ACETAMINOPHEN 325 MG TABLET PO PRN ×2 (11:55→20:15)
[2019-02-23] MEDS: HEPARIN SOD (PORCINE) 5,000 UNIT/ML 1 ML VIAL SUBCUT SCH ×2 (13:39→21:18)
[2019-02-23] MEDS: OMEGA-3 ACID ETHYL ESTERS 1 GM CAPSULE PO SCH ×2 (13:39→17:13)
[2019-02-23] MEDS: GEMFIBROZIL 600 MG TABLET PO SCH ×2 (13:39→17:13)
[2019-02-23] MEDS: NORMAL SALINE 1000 ML 1,000 ML IV PRN ×2 (15:14→20:20)
[2019-02-24] MEDS: INSULIN LISPRO 100 UNIT/ML 3 ML VIAL SUBCUT SCH ×5 (01:07→21:41)
[2019-02-24] MEDS: NORMAL SALINE 1000 ML 1,000 ML IV PRN ×4 (01:07→18:43)
[2019-02-24] MEDS: ACETAMINOPHEN 325 MG TABLET PO PRN ×3 (05:38→17:48)
[2019-02-24] MEDS: KETOROLAC TROMETHAMINE INJ/PF 30 MG/1 ML SDV IV PRN ×3 (05:42→18:42)
[2019-02-24] MEDS: HEPARIN SOD (PORCINE) 5,000 UNIT/ML 1 ML VIAL SUBCUT SCH ×3 (06:07→21:42)
[2019-02-24 06:35] LABS: ABSOLUTE EOSINOPHILS # (AUTO) 0.1 10^3/uL (0.0-0.6); ABSOLUTE LYMPHOCYTES (AUTO) 1.1 10^3/uL (0.5-4.7); ABSOLUTE MONOCYTES (AUTO) 0.7 10^3/uL (0.1-1.4); ABSOLUTE NEUT (AUTO) 8.7 10^3/uL (1.7-8.2); BASOPHILS % (AUTO) 0.1 % (0-2); EOSINOPHILS % (AUTO) 1.1 % (0-6); HEMATOCRIT 32.2 % (36.0-47.0); HEMOGLOBIN 11.1 g/dL (12.0-15.5); LYMPHOCYTES % (AUTO) 10.4 % (13-45); MEAN CORPUSCULAR HEMOGLOBIN 30.3 pg (27.0-33.4); MEAN CORPUSCULAR HGB CONC 34.5 g/dL (32.0-36.0); MEAN CORPUSCULAR VOLUME 88 fl (80-97); MONOCYTES % (AUTO) 6.4 % (3-13); PLATELET COUNT 180 10^3/uL (150-450); RED BLOOD COUNT 3.68 10^6/uL (3.72-5.28); RED CELL DISTRIBUTION WIDTH 13.8 % (11.5-14.0); TOTAL CELLS COUNTED % (AUTO) 100 %; WHITE BLOOD COUNT 10.7 10^3/uL (4.0-10.5)
[2019-02-24 06:55] LABS: ALKALINE PHOSPHATASE 67 U/L (38-126); ANION GAP 9 (5-19); ASPARTATE AMINO TRANSFERASE 18 U/L (14-36); BILIRUBIN,DIRECT 0.3 mg/dL (0.0-0.4); BILIRUBIN,TOTAL 0.9 mg/dL (0.2-1.3); BLOOD UREA NITROGEN 12 mg/dL (7-20); CALCIUM 8.6 mg/dL (8.4-10.2); CARBON DIOXIDE 20 mmol/L (22-30); CHLORIDE 108 mmol/L (98-107); GLUCOSE 204 mg/dL (75-110); TOTAL PROTEIN 5.7 g/dL (6.3-8.2)
[2019-02-24 07:01] LABS: CREATINE KINASE MB < 0.22 ng/mL (<4.55); TROPONIN I < 0.012 ng/mL
--- NOTE | 2019-02-24 08:52 | EKG REPORT ---
SEVERITY:- BORDERLINE ECG - SINUS TACHYCARDIA PROBABLE LEFT ATRIAL ABNORMALITY : Confirmed by: Geri Massey MD 24-Feb-2019 08:52:29
[2019-02-24] MEDS: GEMFIBROZIL 600 MG TABLET PO SCH ×2 (09:02→17:44)
[2019-02-24] MEDS: DOCUSATE SODIUM 100 MG CAPSULE PO SCH ×2 (09:02→17:44)
[2019-02-24] MEDS: OMEGA-3 ACID ETHYL ESTERS 1 GM CAPSULE PO SCH ×2 (09:02→17:44)
[2019-02-24] MEDS ORDERED: DEXTROSE 50%-WATER 25 GM/50 ML DISP.SYRIN IV PRN ×2 (10:19)
[2019-02-24] MEDS ORDERED: GLUCAGON,HUMAN RECOMB 1 MG INJ IM PRN (10:19)
[2019-02-24] MEDS ORDERED: DEXTROSE 40% GEL 15 GM TUBE PO PRN ×2 (10:19)
[2019-02-24 13:05] LABS: CREATINE KINASE MB < 0.22 ng/mL (<4.55); TROPONIN I < 0.012 ng/mL
--- NOTE | 2019-02-24 14:23 | PDOC PROGRESS REPORT ---
Subjective Progress Note for:: 02/24/19 Subjective:: RYNE BOBO is a 33 year old female with a past medical history of diabetes, hypertriglyceridemia and obesity. She presents with 48 hours of abdominal pain that radiates to the back with nausea without vomiting. Pain is exacerbated by movement or food prompting her to evaluate in the emergency department where she is found to have acute pancreatitis with a lipase of 16,[address] without necrosis. She started on symptomatic management IV fluids and referred to the hospitalist for admission. She denies previous episode she denies recent medication changes, alcohol and is otherwise been feeling well. 02/24/2019. No acute events overnight. Abdominal pain improving, patient is tolerating clear liquid, did not have any bowel has not passed any flatus, denies any fever, chills, nausea, vomiting, diarrhea or any urinary symptoms. Reason For Visit: ACUTE PANCREATITIS,DM Physical Exam Vital Signs: Temp Pulse Resp BP Pulse Ox 98.9 F 120 H 16 124/76 99 02/24/19 12:31 02/24/19 12:31 02/24/19 12:31 02/24/19 12:31 02/24/19 12:31 Intake & Output 02/23/19 02/24/19 02/25/19 06:59 06:59 06:59 Intake Total 1999 3963 1000 Output Total 200 Balance 1999 3763 1000 Weight 88.6 kg 95.7 kg General appearance: PRESENT: no acute distress, obese, well-developed, well- nourished Head exam: PRESENT: atraumatic, normocephalic Eye exam: PRESENT: conjunctiva pink, EOMI, PERRLA. ABSENT: scleral icterus Ear exam: PRESENT: normal external ear exam Mouth exam: PRESENT: moist, tongue midline Neck exam: ABSENT: carotid bruit, JVD, lymphadenopathy, thyromegaly Respiratory exam: PRESENT: clear to auscultation holli. ABSENT: rales, rhonchi, wheezes Cardiovascular exam: PRESENT: RRR. ABSENT: diastolic murmur, rubs, systolic murmur Pulses: PRESENT: normal dorsalis pedis pul Vascular exam: PRESENT: normal capillary refill GI/Abdominal exam: PRESENT: normal bowel sounds, soft, tenderness - Epigastric tenderness.. ABSENT: distended, guarding, mass, organolmegaly, rebound Rectal exam: PRESENT: deferred Extremities exam: PRESENT: full ROM. ABSENT: calf tenderness, clubbing, pedal edema Neurological exam: PRESENT: alert, awake, oriented to person, oriented to place, oriented to time, oriented to situation, CN II-XII grossly intact. ABSENT: motor sensory deficit Psychiatric exam: PRESENT: appropriate affect, normal mood. ABSENT: homicidal ideation, suicidal ideation Skin exam: PRESENT: dry, intact, warm. ABSENT: cyanosis, rash Results Laboratory Results: 02/24/19 05:43 02/24/19 05:43 02/24/19 02/24/19 02/24/19 05:43 05:43 05:43 WBC 10.7 H RBC 3.68 L Hgb 11.1 L D Hct 32.2 L MCV 88 MCH 30.3 MCHC 34.5 RDW 13.8 Plt Count 180 Seg Neutrophils % 82.0 H Sodium 137.3 Potassium 4.0 Chloride 108 H Carbon Dioxide 20 L Anion Gap 9 BUN 12 Creatinine 0.45 L Est GFR ( Amer) > 60 Glucose 204 H Calcium 8.6 Total Bilirubin 0.9 AST 18 Alkaline Phosphatase 67 Total Protein 5.7 L Albumin 3.0 L Triglycerides 632 H 02/24/19 02/24/19 02/24/19 05:43 05:43 12:13 Creatine Kinase < 20 L 25 L CK-MB (CK-2) < 0.22 Troponin I < 0.012 02/24/19 12:13 Creatine Kinase CK-MB (CK-2) < 0.22 Troponin I < 0.012 Impressions: Abdomen/Pelvis CT 02/23/19 02:03 IMPRESSION: Moderate acute no evidence of pancreatic process or pseudocyst formation. Assessment and Plan - Diagnosis (1) Pancreatitis Qualifiers: Chronicity: acute Pancreatitis type: other Acute pancreatitis complication: no infection or necrosis Qualified Code(s): K85.80 - Other acute pancreatitis without necrosis or infection Is this a current diagnosis for this admission?: Yes Plan: Improving. P.o. tolerant. Afebrile. WBC WNL. Likely due to hypertriglyceridemia vs DM and NuvaRing use (patient said that she has been on NuvaRing for several years) Triglycerides 632 down from 3226 on admission. Denies any abdominal trauma, alcohol abuse or herbal medication abuse. CT abdomen negative for those no biliary dilation positive for moderate inflammation surrounding the pancreas. Continue opioid and non-opioid analgesics, volume resuscitation, antiemetics. Monitor vitals. (2) Obesity Qualifiers: Obesity type: drug-induced Is this a current diagnosis for this admission?: Yes Plan: BMI 37.4. Of note patient is on NuvaRing for several years may have contributed to her weight gain. TSH WNL. Diet and lifestyle modification recommended. (3) Diabetes Qualifiers: Diabetes mellitus type: type 2 Is this a current diagnosis for this admission?: Yes Plan: Controlled. Hemoglobin A1c 7.1. Takes Janumet at home. Diabetic diet, sliding scale insulin, long-acting insulin, pre-meal insulin, hypoglycemia protocol, Accu-Chek. Restart home meds upon discharge. Outpatient PCP follow-up. (4) Hyperlipidemia Qualifiers: Hyperlipidemia type: mixed hyperlipidemia Qualified Code(s): E78.2 - Mixed hyperlipidemia Is this a current diagnosis for this admission?: Yes Plan: Elevated triglycerides and cholesterol. HDL 34. Patient already on fibroids and omega-3 fatty acids. (5) Leukocytosis Qualifiers: Leukocytosis type: unspecified Qualified Code(s): D72.829 - Elevated white blood cell count, unspecified Is this a current diagnosis for this admission?: Yes Plan: Improving. Urine culture growing gram-positive cocci in clusters and gram-positive cocci. Patient does not have any urinary symptoms. Could be contamination. We will repeat urine culture if positive for strep.
[2019-02-24 19:12] LABS: CREATINE KINASE MB < 0.22 ng/mL (<4.55); TROPONIN I < 0.012 ng/mL
[2019-02-24] MEDS: INSULIN GLARGINE,HUM.REC.ANLOG 1,000 UNIT/10 ML VIAL SUBCUT SCH (21:41)
[2019-02-24] MEDS ORDERED: INSULIN GLARGINE,HUM.REC.ANLOG 1,000 UNIT/10 ML VIAL SUBCUT SCH (22:00)
[2019-02-25] MEDS: KETOROLAC TROMETHAMINE INJ/PF 30 MG/1 ML SDV IV PRN ×3 (01:24→17:30)
[2019-02-25] MEDS: ACETAMINOPHEN 325 MG TABLET PO PRN ×5 (01:24→23:00)
[2019-02-25] MEDS: NORMAL SALINE 1000 ML 1,000 ML IV PRN ×3 (05:36→17:33)
[2019-02-25] MEDS: HEPARIN SOD (PORCINE) 5,000 UNIT/ML 1 ML VIAL SUBCUT SCH ×3 (05:36→23:00)
[2019-02-25 05:54] LABS: ABSOLUTE EOSINOPHILS # (AUTO) 0.2 10^3/uL (0.0-0.6); ABSOLUTE LYMPHOCYTES (AUTO) 1.5 10^3/uL (0.5-4.7); ABSOLUTE MONOCYTES (AUTO) 0.5 10^3/uL (0.1-1.4); ABSOLUTE NEUT (AUTO) 5.7 10^3/uL (1.7-8.2); BASOPHILS % (AUTO) 0.4 % (0-2); EOSINOPHILS % (AUTO) 2.7 % (0-6); HEMATOCRIT 30.6 % (36.0-47.0); HEMOGLOBIN 10.4 g/dL (12.0-15.5); LYMPHOCYTES % (AUTO) 19.2 % (13-45); MEAN CORPUSCULAR HEMOGLOBIN 30.1 pg (27.0-33.4); MEAN CORPUSCULAR HGB CONC 34.1 g/dL (32.0-36.0); MEAN CORPUSCULAR VOLUME 88 fl (80-97); MONOCYTES % (AUTO) 6.5 % (3-13); PLATELET COUNT 159 10^3/uL (150-450); RED BLOOD COUNT 3.46 10^6/uL (3.72-5.28); RED CELL DISTRIBUTION WIDTH 13.6 % (11.5-14.0); SEGMENTED NEUTROPHILS % (AUTO) 71.2 % (42-78); TOTAL CELLS COUNTED % (AUTO) 100 %
[2019-02-25 06:08] LABS: TRIGLYCERIDES 468 mg/dL (<150)
[2019-02-25 06:14] LABS: CHOLESTEROL 310.75 mg/dL (0-200)
[2019-02-25 06:18] LABS: DIRECT LDL 96 mg/dL (<100)
[2019-02-25] MEDS: INSULIN LISPRO 100 UNIT/ML 3 ML VIAL SUBCUT SCH ×4 (08:30→23:01)
[2019-02-25] MEDS ORDERED: OXYMETAZOLINE HCL 0.05% NASAL SPRAY 15 ML BOTTLE NASL PRN (08:46)
[2019-02-25] MEDS: GEMFIBROZIL 600 MG TABLET PO SCH ×2 (09:12→17:29)
[2019-02-25] MEDS: OMEGA-3 ACID ETHYL ESTERS 1 GM CAPSULE PO SCH ×2 (09:12→17:29)
[2019-02-25] MEDS: DOCUSATE SODIUM 100 MG CAPSULE PO SCH ×2 (09:12→17:29)
--- NOTE | 2019-02-25 11:06 | PDOC PROGRESS REPORT ---
Subjective Progress Note for:: 02/25/19 Subjective:: RYNE BOBO is a 33 year old female with a past medical history of diabetes, hypertriglyceridemia and obesity. She presents with 48 hours of abdominal pain that radiates to the back with nausea without vomiting. Pain is exacerbated by movement or food prompting her to evaluate in the emergency department where she is found to have acute pancreatitis with a lipase of 16,[address] without necrosis. She started on symptomatic management IV fluids and referred to the hospitalist for admission. She denies previous episode she denies recent medication changes, alcohol and is otherwise been feeling well. 02/24/2019. No acute events overnight. Abdominal pain improving, patient is tolerating clear liquid, did not have any bowel has not passed any flatus, denies any fever, chills, nausea, vomiting, diarrhea or any urinary symptoms. 02/25/2019. No acute events overnight, abdominal pain is improving however patient is still p.o. intolerant, passing flatus, has not had any bowel movement, denies any fever, chills, nausea, vomiting, diarrhea, constipation or any urinary symptoms. Reason For Visit: ACUTE PANCREATITIS,DM Physical Exam Vital Signs: Temp Pulse Resp BP Pulse Ox 98.5 F 98 16 135/81 H 98 02/25/19 04:47 02/25/19 07:00 02/25/19 04:47 02/25/19 04:47 02/25/19 04:47 Intake & Output 02/24/19 02/25/19 02/26/19 06:59 06:59 06:59 Intake Total 3963 5010 Output Total 200 900 Balance 3763 4110 Weight 95.7 kg 100.1 kg General appearance: PRESENT: obese Respiratory exam: PRESENT: clear to auscultation holli. ABSENT: rales, rhonchi, wheezes Cardiovascular exam: PRESENT: RRR. ABSENT: diastolic murmur, rubs, systolic murmur GI/Abdominal exam: PRESENT: normal bowel sounds, soft, tenderness - Epigastric. ABSENT: distended, guarding, mass, organolmegaly, rebound Extremities exam: PRESENT: full ROM. ABSENT: calf tenderness, clubbing, pedal edema Neurological exam: PRESENT: alert, awake, oriented to person, oriented to place, oriented to time, oriented to situation, CN II-XII grossly intact. ABSENT: motor sensory deficit Results Laboratory Results: 02/25/19 05:08 02/24/19 05:43 02/25/19 02/25/19 02/25/19 05:08 05:08 05:08 WBC 8.0 RBC 3.46 L Hgb 10.4 L Hct 30.6 L MCV 88 MCH 30.1 MCHC 34.1 RDW 13.6 Plt Count 159 Seg Neutrophils % 71.2 Triglycerides 468 H Cholesterol 310.75 H LDL Cholesterol Direct 96 VLDL Cholesterol 94.0 H HDL Cholesterol 29 L Lipase 562.5 H 02/24/19 02/24/19 02/24/19 05:43 05:43 12:13 Creatine Kinase < 20 L 25 L CK-MB (CK-2) < 0.22 Troponin I < 0.012 02/24/19 02/24/19 02/24/19 12:13 17:58 17:58 Creatine Kinase 27 L CK-MB (CK-2) < 0.22 < 0.22 Troponin I < 0.012 < 0.012 Impressions: Abdomen/Pelvis CT 02/23/19 02:03 IMPRESSION: Moderate acute no evidence of pancreatic process or pseudocyst formation. Assessment and Plan - Diagnosis (1) Pancreatitis Qualifiers: Chronicity: acute Pancreatitis type: other Acute pancreatitis complication: no infection or necrosis Qualified Code(s): K85.80 - Other acute pancreatitis without necrosis or infection Is this a current diagnosis for this admission?: Yes Plan: Improving. Still p.o. intolerant. Afebrile. WBC WNL. Likely due to hypertriglyceridemia vs DM and NuvaRing use (patient said that she has been on NuvaRing for several years) 02/25/2019 Llipase 562. Triglyceride 468, cholesterol 310, HDL 29. Triglycerides 3226 on admission. Denies any abdominal trauma, alcohol abuse or herbal medication abuse. CT abdomen negative for those no biliary dilation positive for moderate inflammation surrounding the pancreas. Continue opioid and non-opioid analgesics, volume resuscitation, antiemetics. Monitor vitals. (2) Obesity Qualifiers: Obesity type: drug-induced Is this a current diagnosis for this admission?: Yes Plan: BMI 37.4. Of note patient is on NuvaRing for several years may have contributed to her weight gain. TSH WNL. Diet and lifestyle modification recommended. (3) Diabetes Qualifiers: Diabetes mellitus type: type 2 Is this a current diagnosis for this admission?: Yes Plan: Controlled. Hemoglobin A1c 7.1. Takes Janumet at home. Diabetic diet, sliding scale insulin, long-acting insulin, pre-meal insulin, hypoglycemia protocol, Accu-Chek. Restart home meds upon discharge. Outpatient PCP follow-up. (4) Hyperlipidemia Qualifiers: Hyperlipidemia type: mixed hyperlipidemia Qualified Code(s): E78.2 - Mixed hyperlipidemia Is this a current diagnosis for this admission?: Yes Plan: Elevated triglycerides and cholesterol. HDL 34. Triglyceride 468, cholesterol 310, HDL 29. Patient is stating that her cholesterol has always been normal, and she is on low-dose Crestor for primary prevention. Continue fibroids and omega-3 fatty acids. Patient was advised on the risk of toxicity of his statins if statins are combined with fibrates. Patient strongly advised to follow-up with PCP and recheck her lipid panel and if cholesterol and HDL are within normal limits she woud need to DC statins to reduce toxicity with fibrates. (5) Leukocytosis Qualifiers: Leukocytosis type: unspecified Qualified Code(s): D72.829 - Elevated white blood cell count, unspecified Is this a current diagnosis for this admission?: Yes Plan: WNL. Afebrile. Urine culture on admission growing gram-positive cocci in clusters and gram- positive cocci. Repeat urine culture no growth so far. I am suspecting initial urine culture was contaminated. Patient does not have any UTI symptoms.
[2019-02-25] MEDS: INSULIN GLARGINE,HUM.REC.ANLOG 1,000 UNIT/10 ML VIAL SUBCUT SCH (23:02)
[2019-02-25] MEDS: HYDROMORPHONE HCL INJ/PF 2 MG/ML AMPULE IV PRN (23:12)
[2019-02-26] MEDS: KETOROLAC TROMETHAMINE INJ/PF 30 MG/1 ML SDV IV PRN ×3 (02:27→22:34)
[2019-02-26] MEDS: NORMAL SALINE 1000 ML 1,000 ML IV PRN ×3 (04:15→22:33)
[2019-02-26] MEDS: HEPARIN SOD (PORCINE) 5,000 UNIT/ML 1 ML VIAL SUBCUT SCH ×4 (05:36→22:35)
[2019-02-26 05:47] LABS: ABSOLUTE EOSINOPHILS # (AUTO) 0.2 10^3/uL (0.0-0.6); ABSOLUTE LYMPHOCYTES (AUTO) 1.5 10^3/uL (0.5-4.7); ABSOLUTE MONOCYTES (AUTO) 0.6 10^3/uL (0.1-1.4); ABSOLUTE NEUT (AUTO) 4.7 10^3/uL (1.7-8.2); BASOPHILS % (AUTO) 0.5 % (0-2); EOSINOPHILS % (AUTO) 2.4 % (0-6); HEMATOCRIT 25.7 % (36.0-47.0); HEMOGLOBIN 8.8 g/dL (12.0-15.5); LYMPHOCYTES % (AUTO) 21.5 % (13-45); MEAN CORPUSCULAR HEMOGLOBIN 30.6 pg (27.0-33.4); MEAN CORPUSCULAR HGB CONC 34.4 g/dL (32.0-36.0); MEAN CORPUSCULAR VOLUME 89 fl (80-97); MONOCYTES % (AUTO) 8.4 % (3-13); PLATELET COUNT 168 10^3/uL (150-450); RED BLOOD COUNT 2.88 10^6/uL (3.72-5.28); RED CELL DISTRIBUTION WIDTH 13.5 % (11.5-14.0); SEGMENTED NEUTROPHILS % (AUTO) 67.2 % (42-78); TOTAL CELLS COUNTED % (AUTO) 100 %
[2019-02-26] MEDS: INSULIN LISPRO 100 UNIT/ML 3 ML VIAL SUBCUT SCH ×4 (08:03→22:21)
[2019-02-26] MEDS: HYDROMORPHONE HCL INJ/PF 2 MG/ML AMPULE IV PRN (08:08)
--- NOTE | 2019-02-26 09:27 | PDOC PROGRESS REPORT ---
Subjective Progress Note for:: 02/26/19 Subjective:: RYNE BOBO is a 33 year old female with a past medical history of diabetes, hypertriglyceridemia and obesity. She presents with 48 hours of abdominal pain that radiates to the back with nausea without vomiting. Pain is exacerbated by movement or food prompting her to evaluate in the emergency department where she is found to have acute pancreatitis with a lipase of 16,[address] without necrosis. She started on symptomatic management IV fluids and referred to the hospitalist for admission. She denies previous episode she denies recent medication changes, alcohol and is otherwise been feeling well. 02/24/2019. No acute events overnight. Abdominal pain improving, patient is tolerating clear liquid, did not have any bowel has not passed any flatus, denies any fever, chills, nausea, vomiting, diarrhea or any urinary symptoms. 02/25/2019. No acute events overnight, abdominal pain is improving however patient is still p.o. intolerant, passing flatus, has not had any bowel movement, denies any fever, chills, nausea, vomiting, diarrhea, constipation or any urinary symptoms. 02/26/2019. No acute events overnight, patient diet was advanced yesterday however could not tolerate his, patient is able to tolerate liquid diet, passing flatus, has had one bowel movement, pain is improving, 3/5, denies any fever, chills, nausea, vomiting, diarrhea, constipation or any urinary symptoms. If p.o. tolerant patient could be DC'd home tomorrow. Reason For Visit: ACUTE PANCREATITIS,DM Physical Exam Vital Signs: Temp Pulse Resp BP Pulse Ox 98.7 F 99 16 146/82 H 96 02/26/19 07:29 02/26/19 07:29 02/26/19 07:29 02/26/19 07:29 02/26/19 07:29 Intake & Output 02/25/19 02/26/19 02/27/19 06:59 06:59 06:59 Intake Total 5010 3610 Output Total 900 1300 Balance 4110 2310 Weight 100.1 kg 89.6 kg General appearance: PRESENT: obese Respiratory exam: PRESENT: clear to auscultation holli. ABSENT: rales, rhonchi, wheezes Cardiovascular exam: PRESENT: RRR. ABSENT: diastolic murmur, rubs, systolic murmur GI/Abdominal exam: PRESENT: normal bowel sounds, soft, tenderness. ABSENT: distended, guarding, mass, organolmegaly, rebound Torso Front/Back Image: 1 - TTP Neurological exam: PRESENT: alert, awake, oriented to person, oriented to place, oriented to time, oriented to situation, CN II-XII grossly intact. ABSENT: motor sensory deficit Skin exam: PRESENT: dry, intact, warm. ABSENT: cyanosis, rash Results Laboratory Results: 02/26/19 04:51 02/24/19 05:43 02/26/19 02/26/19 04:51 04:51 WBC 7.0 RBC 2.88 L Hgb 8.8 L Hct 25.7 L MCV 89 MCH 30.6 MCHC 34.4 RDW 13.5 Plt Count 168 Seg Neutrophils % 67.2 Lipase 461.1 H 02/22/19 23:15 Clean Catch Midstream Urine Culture - Final Staphylococcus Aureus Enterococcus Faecalis(Group D) 02/24/19 02/24/19 02/24/19 05:43 05:43 12:13 Creatine Kinase < 20 L 25 L CK-MB (CK-2) < 0.22 Troponin I < 0.012 02/24/19 02/24/19 02/24/19 12:13 17:58 17:58 Creatine Kinase 27 L CK-MB (CK-2) < 0.22 < 0.22 Troponin I < 0.012 < 0.012 Impressions: Abdomen/Pelvis CT 02/23/19 02:03 IMPRESSION: Moderate acute no evidence of pancreatic process or pseudocyst formation. Assessment and Plan - Diagnosis (1) Pancreatitis Qualifiers: Chronicity: acute Pancreatitis type: other Acute pancreatitis complication: no infection or necrosis Qualified Code(s): K85.80 - Other acute pancreatitis without necrosis or infection Is this a current diagnosis for this admission?: Yes Plan: Improving. Still p.o. intolerant. Afebrile. WBC WNL. Likely due to hypertriglyceridemia vs DM and NuvaRing use (patient said that she has been on NuvaRing for several years) 02/25/2019 Llipase 460, Triglyceride 468, cholesterol 310, HDL 29. Triglycerides 3226 on admission. Denies any abdominal trauma, alcohol abuse or herbal medication abuse. CT abdomen negative for those no biliary dilation positive for moderate inflammation surrounding the pancreas. Continue opioid and non-opioid analgesics, volume resuscitation, antiemetics. Monitor vitals. (2) Obesity Qualifiers: Obesity type: drug-induced Is this a current diagnosis for this admission?: Yes Plan: BMI 37.4. Of note patient is on NuvaRing for several years may have contributed to her weight gain. TSH WNL. Diet and lifestyle modification recommended. (3) Diabetes Qualifiers: Diabetes mellitus type: type 2 Is this a current diagnosis for this admission?: Yes Plan: Controlled. Hemoglobin A1c 7.1. Takes Janumet at home. Diabetic diet, sliding scale insulin, long-acting insulin, pre-meal insulin, hypoglycemia protocol, Accu-Chek. Restart home meds upon discharge. Outpatient PCP follow-up. (4) Hyperlipidemia Qualifiers: Hyperlipidemia type: mixed hyperlipidemia Qualified Code(s): E78.2 - Mixed hyperlipidemia Is this a current diagnosis for this admission?: Yes Plan: Elevated triglycerides and cholesterol. HDL 34. Triglyceride 468, cholesterol 310, HDL 29. Patient is stating that her cholesterol has always been normal, and she is on low-dose Crestor for primary prevention. Continue fibrates and omega-3 fatty acids. Patient was advised on the risk of toxicity of his statins if statins are combined with fibrates. Patient strongly advised to follow-up with PCP and recheck her lipid panel and if cholesterol and HDL are within normal limits she woud need to DC statins to reduce toxicity with fibrates. (5) Leukocytosis Qualifiers: Leukocytosis type: unspecified Qualified Code(s): D72.829 - Elevated white blood cell count, unspecified Is this a current diagnosis for this admission?: Yes Plan: WNL. Afebrile. Urine culture on admission growing gram-positive cocci in clusters and gram- positive cocci. Repeat urine culture no growth so far. I am suspecting initial urine culture was contaminated. Patient does not have any UTI symptoms. (6) Anemia Qualifiers: Anemia type: iron deficiency Is this a current diagnosis for this admission?: Yes Plan: Microcytic. Hemoglobin 8.8 down from 14.6 on admission. This could partly be attributed to hemodilution and also the fact that patient currently menstruating. Denies any nosebleeds, hematemesis, hemoptysis, easy bruising, melena or hematochezia. Monitor H&H, supportive transfusions. We will give a stool guaiac to rule out any acute bleeding.
[2019-02-26] MEDS: ACETAMINOPHEN 325 MG TABLET PO PRN ×2 (10:26→20:33)
[2019-02-26] MEDS: OMEGA-3 ACID ETHYL ESTERS 1 GM CAPSULE PO SCH ×2 (10:26→17:52)
[2019-02-26] MEDS: DOCUSATE SODIUM 100 MG CAPSULE PO SCH ×2 (10:26→17:52)
[2019-02-26] MEDS: GEMFIBROZIL 600 MG TABLET PO SCH ×2 (10:26→17:52)
[2019-02-26] MEDS ORDERED: KETOROLAC TROMETHAMINE INJ/PF 30 MG/1 ML SDV IV ONE (13:30)
[2019-02-26] MEDS: LEVOFLOXACIN 750 MG/D5W RTU 750 MG/150 ML RTUPB IV SCH (14:51)
[2019-02-26] MEDS: INSULIN GLARGINE,HUM.REC.ANLOG 1,000 UNIT/10 ML VIAL SUBCUT SCH (22:22)
[2019-02-27 04:53] LABS: ABSOLUTE EOSINOPHILS # (AUTO) 0.2 10^3/uL (0.0-0.6); ABSOLUTE LYMPHOCYTES (AUTO) 1.8 10^3/uL (0.5-4.7); ABSOLUTE MONOCYTES (AUTO) 0.6 10^3/uL (0.1-1.4); BASOPHILS % (AUTO) 0.7 % (0-2); EOSINOPHILS % (AUTO) 3.2 % (0-6); HEMATOCRIT 28.3 % (36.0-47.0); HEMOGLOBIN 9.6 g/dL (12.0-15.5); LYMPHOCYTES % (AUTO) 27.2 % (13-45); MEAN CORPUSCULAR HEMOGLOBIN 29.8 pg (27.0-33.4); MEAN CORPUSCULAR HGB CONC 33.8 g/dL (32.0-36.0); MEAN CORPUSCULAR VOLUME 88 fl (80-97); MONOCYTES % (AUTO) 9.2 % (3-13); PLATELET COUNT 190 10^3/uL (150-450); RED BLOOD COUNT 3.21 10^6/uL (3.72-5.28); SEGMENTED NEUTROPHILS % (AUTO) 59.7 % (42-78); TOTAL CELLS COUNTED % (AUTO) 100 %; WHITE BLOOD COUNT 6.7 10^3/uL (4.0-10.5)
[2019-02-27 05:09] LABS: ALBUMIN 2.9 g/dL (3.5-5.0); ALKALINE PHOSPHATASE 77 U/L (38-126); ANION GAP 8 (5-19); ASPARTATE AMINO TRANSFERASE 48 U/L (14-36); BILIRUBIN,DIRECT 0.2 mg/dL (0.0-0.4); BILIRUBIN,TOTAL 0.5 mg/dL (0.2-1.3); BLOOD UREA NITROGEN 11 mg/dL (7-20); CALCIUM 8.8 mg/dL (8.4-10.2); CARBON DIOXIDE 21 mmol/L (22-30); CHLORIDE 109 mmol/L (98-107); GLUCOSE 137 mg/dL (75-110); POTASSIUM 3.6 mmol/L (3.6-5.0); TOTAL PROTEIN 5.7 g/dL (6.3-8.2)
[2019-02-27] MEDS: ACETAMINOPHEN 325 MG TABLET PO PRN (05:33)
[2019-02-27] MEDS: HEPARIN SOD (PORCINE) 5,000 UNIT/ML 1 ML VIAL SUBCUT SCH (05:34)
[2019-02-27] MEDS: KETOROLAC TROMETHAMINE INJ/PF 30 MG/1 ML SDV IV PRN (05:40)
[2019-02-27] MEDS: INSULIN LISPRO 100 UNIT/ML 3 ML VIAL SUBCUT SCH (07:34)
[2019-02-27] MEDS: NORMAL SALINE 1000 ML 1,000 ML IV PRN (07:49)
[2019-02-27] MEDS: OMEGA-3 ACID ETHYL ESTERS 1 GM CAPSULE PO SCH (09:35)
[2019-02-27] MEDS: DOCUSATE SODIUM 100 MG CAPSULE PO SCH (09:35)
[2019-02-27] MEDS: LEVOFLOXACIN 750 MG/D5W RTU 750 MG/150 ML RTUPB IV SCH (09:35)
[2019-02-27] MEDS: GEMFIBROZIL 600 MG TABLET PO SCH (09:35)
[2019-02-27 10:07] VITALS: BP 128/82
--- NOTE | 2019-03-04 17:36 | PDOC DISCHARGE SUMMARY ---
General - Admit/Disc Date/PCP Admission Date/Primary Care Provider: 02/23/19 06:50 LAURA MERA Discharge Date: 02/27/19 - Discharge Diagnosis (1) Pancreatitis Is this a current diagnosis for this admission?: Yes (2) Obesity Is this a current diagnosis for this admission?: Yes (3) Diabetes Is this a current diagnosis for this admission?: Yes (4) Hyperlipidemia Is this a current diagnosis for this admission?: Yes (5) Leukocytosis Is this a current diagnosis for this admission?: Yes (6) Anemia Is this a current diagnosis for this admission?: Yes (7) UTI (urinary tract infection) due to Enterococcus Is this a current diagnosis for this admission?: Yes - Additional Information Resuscitation Status: Full Code Discharge Activity: Activity As Tolerated Prescriptions: Levofloxacin [Levaquin 500 mg Tablet] 500 mg PO DAILY 3 Days #3 tablet Gemfibrozil [Lopid] 600 mg PO BID 30 Days #60 tablet [place]-3 Fatty Acids [[place]-3] 2,000 mg PO BID 30 Days #60 capsule Promethazine HCl [Phenergan 25 mg Tablet] 12.5 mg PO Q8 7 Days #14 tablet Acetaminophen with Codeine [Tylenol #3 Tablet] 1 each PO Q6HP PRN 7 Days #28 tablet PRN Reason: Home Medications: Etonogestrel/Ethinyl Estradiol [Nuvaring Vaginal Ring] 1 each VG .ONCE MONTHLY PRN 02/23/19 Lisinopril [Prinivil 2.5 mg Tablet] 2.5 mg PO DAILY 02/23/19 Rosuvastatin Calcium [Crestor 5 mg Tablet] 5 mg PO DAILY 02/23/19 Sitagliptin Phos/Metformin HCl [Janumet Xr 100-1,000 mg Tablet] 1 each PO DAILY 02/23/19 [place]-3 Fatty Acids [[place]-3] 2,000 mg PO BID 30 Days #60 capsule 02/25/19 Acetaminophen with Codeine [Tylenol #3 Tablet] 1 each PO Q6HP PRN 7 Days #28 tablet 02/27/19 Gemfibrozil [Lopid] 600 mg PO BID 30 Days #60 tablet 02/27/19 Levofloxacin [Levaquin 500 mg Tablet] 500 mg PO DAILY 3 Days #3 tablet 02/27/19 Promethazine HCl [Phenergan 25 mg Tablet] 12.5 mg PO Q8 7 Days #14 tablet 02/27/19 History of Present Illness History of Present Illness: RYNE BOBO is a 33 year old female with a past medical history of diabetes, hypertriglyceridemia and obesity. She presents with 48 hours of abdominal pain that radiates to the back with nausea without vomiting. Pain is exacerbated by movement or food prompting her to evaluate in the emergency department where she is found to have acute pancreatitis with a lipase of 16,[address] without necrosis. She started on symptomatic management IV fluids and referred to the hospitalist for admission. She denies previous episode she denies recent medication changes, alcohol and is otherwise been feeling well. Hospital Course Hospital Course: (1) Pancreatitis Resolved. p.o. intolerant. Afebrile. WBC WNL. Most likely due to hypertriglyceridemia vs DM and NuvaRing use (patient said that she has been on NuvaRing for several years) 02/25/2019 Llipase 460, Triglyceride 468, cholesterol 310, HDL 29. Triglycerides 3226 on admission. Denie any abdominal trauma, alcohol abuse or herbal medication abuse. CT abdomen negative for those no biliary dilation positive for moderate inflammation surrounding the pancreas. Was started on opioid and non-opioid analgesics, volume resuscitation, antiemetics. (2) Obesity BMI 37.4. Of note patient is on NuvaRing for several years may have contributed to her weight gain. TSH WNL. Diet and lifestyle modification recommended. (3) Diabetes Controlled. Hemoglobin A1c 7.1. Takes Janumet at home. Was started on diabetic diet, sliding scale insulin, long-acting insulin, pre- meal insulin, hypoglycemia protocol, Accu-Chek. Restart home meds upon discharge. Outpatient PCP follow-up. (4) Hyperlipidemia Elevated triglycerides and cholesterol. HDL 34. Repeat Triglyceride 468, cholesterol 310, HDL 29. Patient is stating that her cholesterol has always been normal, and she is on low-dose Crestor for primary prevention. Was started on fibrates and omega-3 fatty acids. Patient was advised on the risk of toxicity of his statins if statins are combined with fibrates. Patient strongly advised to follow-up with PCP and recheck her lipid panel and if cholesterol and HDL are within normal limits she woud need to DC statins to reduce toxicity with fibrates. (5) Leukocytosis WNL. Afebrile. Urine culture on admission growing coccus faecalis and MSSA. Repeat urine culture grew the same above organism. Patient does not have any UTI symptoms. She did receive 2 days of IV levofloxacin and was discharged on 3 days of p.o. levofloxacin to complete a total of 5 days. (6) Anemia Microcytic. Hemoglobin 8.8 down from 14.6 on admission. This could partly be attributed to hemodilution and also the fact that patient currently menstruating. Denies any nosebleeds, hematemesis, hemoptysis, easy bruising, melena or hematochezia. Monitor H&H, supportive transfusions. Guaiac negative. (7) UTI (urinary tract infection) due to Enterococcus She denies any symptoms however had two urine culture for Enterococcus faecalis and MSSA. Received 2 days of IV levofloxacin and was discharged on 3 days of p.o. levofloxacin to complete total of 5 days. Physical Exam Vital Signs: Temp Pulse Resp BP Pulse Ox 98.3 F 78 16 128/82 H 97 02/27/19 10:06 02/27/19 10:06 02/27/19 10:06 02/27/19 10:02/27/19 10:06 General appearance: PRESENT: obese Respiratory exam: PRESENT: clear to auscultation holli. ABSENT: rales, rhonchi, wheezes Cardiovascular exam: PRESENT: RRR. ABSENT: diastolic murmur, rubs, systolic murmur GI/Abdominal exam: PRESENT: normal bowel sounds, soft. ABSENT: distended, guarding, mass, organolmegaly, rebound, tenderness Neurological exam: PRESENT: alert, awake, oriented to person, oriented to place, oriented to time, oriented to situation, CN II-XII grossly intact. ABSENT: motor sensory deficit Results Laboratory Results: 02/27/19 03:23 02/27/19 03:23 02/24/19 02/24/19 02/24/19 05:43 05:43 12:13 Creatine Kinase < 20 L 25 L CK-MB (CK-2) < 0.22 Troponin I < 0.012 02/24/19 02/24/19 02/24/19 12:13 17:58 17:58 Creatine Kinase 27 L CK-MB (CK-2) < 0.22 < 0.22 Troponin I < 0.012 < 0.012 Impressions: Abdomen/Pelvis CT 02/23/19 02:03 IMPRESSION: Moderate acute no evidence of pancreatic process or pseudocyst formation. Qualifiers - * PATIENT BEING DISCHARGED WITH ANY OF THE FOLLOWING DIAGNOSIS: No VTE patient discharged on overlapping Therapy?: No Acute Heart Failure - Is this a Heart Failure Patient?: No
== END 2019-02-27 12:12 | disposition home or self-care (01) | DRG 439 ==
LOC: ER 22:13 → EH 02-23 06:50 → 4S 02-23 08:35
PROVIDERS: ADMIT Internal Medicine; ATTEND Internal Medicine
DX: K85.80 Other acute pancreatitis without necrosis or infection (principal); N39.0 Urinary tract infection, site not specified; E11.9 Type 2 diabetes mellitus without complications; B95.61 Methicillin susceptible Staphylococcus aureus infection as the cause of diseases classified elsewhere; B95.2 Enterococcus as the cause of diseases classified elsewhere; E78.1 Pure hyperglyceridemia; E78.2 Mixed hyperlipidemia; I10 Essential (primary) hypertension; D72.829 Elevated white blood cell count, unspecified; E66.1 Drug-induced obesity; D50.9 Iron deficiency anemia, unspecified; E78.00 Pure hypercholesterolemia, unspecified; Z68.37 Body mass index [BMI] 37.0-37.9, adult; Z79.899 Other long term (current) drug therapy; Z83.3 Family history of diabetes mellitus; Z82.49 Family history of ischemic heart disease and other diseases of the circulatory system
CPT/HCPCS: 36415; 74177; 80053; 80061; 81001; 81025; 82010; 82272; 82550; 82553; 82962; 83036; 83605; 83690; 84443; 84478; 84484; 85025; 87070; 87086; 87088; 87186; 93005; 93010; 94640; 96361; 96374; 96375; 96376; 99285; J1170; J1644; J1815; J1885; J1956; J2270; J2405; J3490; J7030; J7620